=== PATIENT | male | born 1995 | race African-American/Black ===

== ENCOUNTER 2017-12-24 17:08 | Inpatient (IN) | payer BC ==
[~2017-12-24] VITALS: Ht 170.2 cm; Wt 59.9 kg
[~2017-12-24 17:08] MED LIST: AMIODARONE HCL 50 MG/ML 3 ML VIAL IV ONE; CALCIUM CHLORIDE 100 MG/ML 10 ML SYG IVP ONE; DEXTROSE 50%-WATER 50 ML DISP.SYRIN IV ONE; DOPAMINE HCL 400 MG/D5%-WATER 250 ML IV ONE; EPINEPHRINE 0.1 MG/ML 10 ML SYG IVP ONE; ETOMIDATE 2 MG/ML 10 ML VIAL IVP ONE; ROCURONIUM BROMIDE 10MG/1ML 5ML VL IV ONE; SODIUM BICARB 8.4% 50ML SYRINGE IVP ONE
[2017-12-24] MEDS ORDERED: SODIUM CHLORIDE 0.9% 1000ML 1,000 ML IV ONE ×2 (17:43→19:56)
[2017-12-24] MEDS ORDERED: ONDANSETRON HCL 4 MG/2 ML VIAL ONE ×2 (17:43→18:09)
[2017-12-24] MEDS ORDERED: LABETALOL HCL 5 MG/ML 20ML VIAL IV ONE (17:43)
[2017-12-24] MEDS ORDERED: METHYLPREDNISOLONE SOD SUCC 125MG/2ML VIAL ONE (17:44)
[2017-12-24] MEDS ORDERED: CEFTRIAXONE SODIUM 1 GM ONE (17:44)
[2017-12-24] MEDS ORDERED: KETOROLAC TROMETHAMINE 30MG/ML ONE (17:44)
[2017-12-24] MEDS ORDERED: ACETAMINOPHEN EXTRA STRENGTH 500 MG TABLET ONE (17:44)
[2017-12-24] MEDS ORDERED: SODIUM CHLORIDE 0.9% 1000ML 2,000 ML IV ONE (17:46)
[2017-12-24 17:48] LABS: BASOPHILS % (AUTO) 0.1 % (0.0-5.0); LYMPHOCYTES % (AUTO) 8.6 % (21.0-51.0); MEAN CORPUSCULAR HEMOGLOBIN 34.9 pg (27.0-33.0); MEAN CORPUSCULAR HGB CONC 33.4 g/dL (32.0-36.0); MEAN CORPUSCULAR VOLUME 104.3 fL (80-100); MONOCYTES % (AUTO) 1.8 % (3.0-13.0); NEUTROPHILS % (AUTO) 51.5 % (40.0-77.0); PLATELET COUNT (AUTO) 117 K/uL (130-400); RED BLOOD CELL COUNT(AUTO) 1.65 MIL/uL (4.50-6.20); RED CELL DISTRIBUTION WIDTH 28.3 % (11.0-15.5); WHITE BLOOD COUNT (AUTO) 29.6 K/uL (4.8-10.8)
[2017-12-24 17:49] LABS: HEMATOCRIT 17.2 % (42-54)
[2017-12-24] MEDS ORDERED: ALBUTEROL SULFATE 0.083% 2.5 MG/3 ML INH IH ONE (17:52)
[2017-12-24 17:55] LABS: INR 1.62 (0.85-1.15); PARTIAL THROMBOPLASTIN TIME 38.9 SEC (26.3-35.5); PROTHROMBIN TIME 16.8 SEC (9.6-11.6)
[2017-12-24] MEDS ORDERED: AZITHROMYCIN 500MG+NS 250ML 250 ML IV ONE (17:55)
[2017-12-24 18:07] LABS: CREATININE 6.3 mg/dL (0.5-1.5); POTASSIUM 5.3 mmol/L (3.5-5.1)
[2017-12-24] MEDS ORDERED: SODIUM BICARB 50MEQ 50ML VIAL ONE (18:19)
[2017-12-24] MEDS ORDERED: PROPOFOL 1000 MG/100 ML 100 ML IV ONE (18:25)
[2017-12-24 18:35] LABS: ALBUMIN 3.2 g/dL (3.5-5.0); BAND NEUTROPHILS % (MANUAL) 3 % (0-2); BILIRUBIN,TOTAL 15.2 mg/dL (0.2-1.0); CORRECTED WHITE BLOOD COUNT 12.1 K/uL (4.5-11.0); LYMPHOCYTES % (MANUAL) 14 % (22-44); METAMYELOCYTES % 6 % (0-0); MONOCYTES % (MANUAL) 3 % (2-9); MYELOCYTES % 2 % (0-0); NUCLEATED RED BLOOD CELLS 144.8 % (0.0-0.19); SEGMENTED NEUTROPHILS % 72 % (40-70); TOTAL PROTEIN, SERUM 6.9 g/dL (6.0-8.3)
[2017-12-24 18:36] LABS: PLATELET MORPHOLOGY COMMENT SLIGHTLY DECREASED
[2017-12-24] MEDS ORDERED: FUROSEMIDE 10 MG/ML 2ML VIAL ONE (18:39)
[2017-12-24] MEDS ORDERED: NOREPINEPHRINE BITARTRATE 1 MG/1 ML ML IV ONE ×2 (18:44→23:09)
[2017-12-24] MEDS ORDERED: ATROPINE SULFATE 0.1 MG/ML 10 ML SYG IVP ONE (18:44)
[2017-12-24 18:45] LABS: TROPONIN I 3.45 ng/mL (0.00-0.06)
[2017-12-24] MEDS ORDERED: DOPAMINE 800MG/D5 250ML 250 ML IV ONE (18:46)
[2017-12-24 18:53] LABS: RETICULOCYTE % (AUTO) 18.76 % (0.42-2.23)
[2017-12-24 19:10] LABS: % IRON SATURATION 44.5 % (30-44); FERRITIN 300 ng/mL (30-400); IRON, SERUM 82 mcg/dL (65-175); TOTAL IRON BINDING CAPACITY 184 mcg/dL (250-450)
[2017-12-24] MEDS ORDERED: MAGNESIUM 2GM PREMIX 50ML 50 ML IV ONE (19:13)
[2017-12-24] MEDS ORDERED: DEXTROSE 50%-WATER 50 ML DISP.SYRIN IV ONE ×2 (19:26→19:32)
[2017-12-24] MEDS ORDERED: EPINEPHRINE 1 MG/ML AMPULE ONE ×2 (19:29→23:16)
[2017-12-24] MEDS ORDERED: EPINEPHRINE 0.1 MG/ML 10 ML SYG ONE ×2 (19:29→19:32)
[2017-12-24] MEDS ORDERED: CEFAZOLIN SODIUM 1 GM VIAL ONE (19:55)
[2017-12-24] MEDS ORDERED: HEPARIN SODIUM 5000UNIT/ML 1ML VIAL ONE (19:57)
[2017-12-24] MEDS ORDERED: SODIUM CHLORIDE 0.9% 500ML 500 ML IV ONE (19:58)
[2017-12-24] MEDS: EPINEPHRINE 2 MG in SODIUM CHLORIDE 0.9% 250 ML IV SCH (20:00)
[2017-12-24 20:08] LABS: ABG BASE EXCESS -21.7 mmol/L (-2.0-3.0); ABG HCO3 7.5 mmol/L (21.0-28.0); ABG OXYGEN SATURATION 96.9 % (95.0-99.0); ABG PCO2 32 mmHg (35-48)
[2017-12-24] MEDS ORDERED: SODIUM BICARB [NEONATAL] 4.2% 10ML SYG ONE (20:14)
[2017-12-24] MEDS ORDERED: ZOSYN 3.375GM+NS 50ML 50 ML IV ONE (20:19)
[2017-12-24] MEDS ORDERED: SODIUM CHLORIDE 0.9% 100 ML IV ONE (20:20)
[2017-12-24 21:04] LABS: ABG BASE EXCESS -20.3 mmol/L (-2.0-3.0); ABG HCO3 3.8 mmol/L (21.0-28.0); ABG OXYGEN SATURATION 98.8 % (95.0-99.0); ABG PCO2 < 15 mmHg (35-48)
[2017-12-24 21:22] LABS: ABG BASE EXCESS -15.6 mmol/L (-2.0-3.0); ABG HCO3 10.1 mmol/L (21.0-28.0); ABG OXYGEN SATURATION 92.9 % (95.0-99.0); ABG PCO2 23 mmHg (35-48)
[2017-12-24 22:13] LABS: ABG BASE EXCESS 4.7 mmol/L (-2.0-3.0); ABG HCO3 31.8 mmol/L (21.0-28.0); ABG OXYGEN SATURATION 81.5 % (95.0-99.0); ABG PCO2 72 mmHg (35-48)
[2017-12-24 22:19] LABS: ABG BASE EXCESS 2.4 mmol/L (-2.0-3.0); ABG HCO3 30.9 mmol/L (21.0-28.0); ABG OXYGEN SATURATION 74.6 % (95.0-99.0); ABG PCO2 85 mmHg (35-48)
[2017-12-24] MEDS ORDERED: FUROSEMIDE 10 MG/ML 4ML VIAL ONE (22:21)
[2017-12-24 22:32] LABS: ABG OXYGEN SATURATION 87.9 % (95.0-99.0); ABG PCO2 41 mmHg (35-48)
[2017-12-24 23:00] VITALS: BP_SYST 0; BP_SYST 30; BP_DIAS 0; BP_DIAS 28
[2017-12-24 23:10] LABS: ABG BASE EXCESS -23.7 mmol/L (-2.0-3.0); ABG HCO3 3.2 mmol/L (21.0-28.0); ABG PCO2 < 15 mmHg (35-48)
[2017-12-24] MEDS ORDERED: SODIUM CHLORIDE 0.9% 500 ML IV ONE (23:11)
[2017-12-24 23:15] VITALS: BP_SYST 0; BP_SYST 29; BP_DIAS 0; BP_DIAS 27
[2017-12-24 23:30] VITALS: BP_SYST 0; BP_SYST 29; BP_DIAS 0; BP_DIAS 27
[2017-12-24 23:45] VITALS: BP_SYST 0; BP_SYST 33; BP_DIAS 0; BP_DIAS 29
[2017-12-24] MEDS ORDERED: DOPAMINE 800MG/D5 250ML 250 ML IV PRN (23:45)
[2017-12-24] MEDS ORDERED: NOREPINEPHRINE 4MG/NS 250ML 250 ML IV SCH (23:45)
[2017-12-24] MEDS ORDERED: EPINEPHRINE 2 MG in SODIUM CHLORIDE 0.9% 250 ML IV SCH (23:45)
[2017-12-24] MEDS ORDERED: SODIUM BICARB 8.4% 50ML SYRINGE IVP SCH (23:45)
[2017-12-24] MEDS: VASOPRESSIN 20 UNITS in SODIUM CHLORIDE 0.9% 50 ML IV PRN (23:45)
[2017-12-24] MEDS ORDERED: INSULIN REGULAR, HUMAN 3ML 100 UNIT in SODIUM CHLORIDE 0.9% 99 ML IV PRN ×2 (23:45)
[2017-12-24] MEDS ORDERED: VASOPRESSIN 20 UNITS/ML 1ML VIAL ONE (23:54)
[2017-12-24 23:55] LABS: ABG OXYGEN SATURATION 98.7 % (95.0-99.0)
[2017-12-25] VITALS (29 sets, daily range): BP systolic 0–75; BP diastolic 0–218
[2017-12-25 00:01] LABS: ABG OXYGEN SATURATION 98.8 % (95.0-99.0)
[2017-12-25] MEDS ORDERED: SODIUM CHLORIDE 0.9% 100 ML IV ONE (00:13)
[2017-12-25] MEDS ORDERED: INSULIN HUMULIN R 100 UNIT/ML 3ML ONE (00:13)
[2017-12-25 00:17] LABS: ABG OXYGEN SATURATION 98.8 % (95.0-99.0)
[2017-12-25 00:28] LABS: ABG BASE EXCESS -6.6 mmol/L (-2.0-3.0); ABG HCO3 13.2 mmol/L (21.0-28.0); ABG OXYGEN SATURATION 98.9 % (95.0-99.0); ABG PCO2 < 15 mmHg (35-48)
[2017-12-25] MEDS ORDERED: LEVOFLOXACIN 750 MG/D5W 150 ML 150 ML IV SCH ×2 (01:00→01:30)
[2017-12-25] MEDS ORDERED: CALCIUM CHLORIDE 100 MG/ML 10 ML SYG IVP SCH (01:00)
[2017-12-25] MEDS ORDERED: EPINEPHRINE 1 MG/ML AMPULE ONE ×3 (01:09→06:04)
[2017-12-25] MEDS ORDERED: SODIUM CHLORIDE 0.9% 250 ML IV ONE ×3 (01:11→06:05)
[2017-12-25] MEDS ORDERED: NOREPINEPHRINE BITARTRATE 1 MG/1 ML ML IV ONE (01:19)
[2017-12-25 01:24] LABS: ABG BASE EXCESS -15.6 mmol/L (-2.0-3.0); ABG HCO3 7.6 mmol/L (21.0-28.0); ABG OXYGEN SATURATION 98.7 % (95.0-99.0); ABG PCO2 < 15 mmHg (35-48)
[2017-12-25 01:25] LABS: CORRECTED WHITE BLOOD COUNT 4.4 K/uL (4.5-11.0); HEMATOCRIT 25.5 % (42-54); MEAN CORPUSCULAR HEMOGLOBIN 29.7 pg (27.0-33.0); MEAN CORPUSCULAR HGB CONC 32.7 g/dL (32.0-36.0); MEAN CORPUSCULAR VOLUME 90.9 fL (80-100); NUCLEATED RED BLOOD CELLS 89.2 % (0.0-0.19); PLATELET COUNT (AUTO) 90 K/uL (130-400); RED BLOOD CELL COUNT(AUTO) 2.81 MIL/uL (4.50-6.20); RED CELL DISTRIBUTION WIDTH 16.8 % (11.0-15.5); WHITE BLOOD COUNT (AUTO) 8.4 K/uL (4.8-10.8)
[2017-12-25 01:46] LABS: INR 2.86 (0.85-1.15); PROTHROMBIN TIME 29.4 SEC (9.6-11.6)
[2017-12-25 01:48] LABS: ALBUMIN 1.6 g/dL (3.5-5.0); BILIRUBIN,TOTAL 5.7 mg/dL (0.2-1.0); CREATININE 4.6 mg/dL (0.5-1.5); TOTAL PROTEIN, SERUM 3.6 g/dL (6.0-8.3)
[2017-12-25 01:56] LABS: POTASSIUM 8.5 mmol/L (3.5-5.1)
[2017-12-25 01:57] LABS: BAND NEUTROPHILS % (MANUAL) 12 % (0-2); EOSINOPHILS % (MANUAL) 1 % (1-6); LYMPHOCYTES % (MANUAL) 17 % (22-44); METAMYELOCYTES % 3 % (0-0); MONOCYTES % (MANUAL) 6 % (2-9); SEGMENTED NEUTROPHILS % 61 % (40-70)
[2017-12-25 01:58] LABS: MAN.DIFF COMMENT-IMPRESSION MANUAL DIFFERENTIAL
[2017-12-25 02:00] LABS: PLATELET MORPHOLOGY COMMENT DECREASED
[2017-12-25] MEDS: CALCIUM CHLORIDE 100 MG/ML 10 ML SYG IVP SCH ×9 (02:00→12:22)
[2017-12-25 02:28] LABS: PARTIAL THROMBOPLASTIN TIME > 120.0 SEC (26.3-35.5)
[2017-12-25] MEDS ORDERED: LEVOFLOXACIN 750 MG/D5W 150 ML 150 ML ONE (02:42)
[2017-12-25] MEDS ORDERED: SODIUM BICARB 50MEQ 50ML VIAL ONE ×4 (02:53→08:18)
[2017-12-25] MEDS ORDERED: SODIUM BICARB 50MEQ 50ML VIAL IV ONE (03:00)
[2017-12-25 03:03] LABS: ABG BASE EXCESS 32.8 mmol/L (-2.0-3.0); ABG HCO3 55.1 mmol/L (21.0-28.0); ABG OXYGEN SATURATION 98.6 % (95.0-99.0); ABG PCO2 42 mmHg (35-48)
[2017-12-25 03:16] LABS: ABG BASE EXCESS 13.8 mmol/L (-2.0-3.0); ABG HCO3 35.9 mmol/L (21.0-28.0); ABG OXYGEN SATURATION 98.7 % (95.0-99.0); ABG PCO2 34 mmHg (35-48)
[2017-12-25 03:30] LABS: HEMATOCRIT 16.3 % (42-54)
[2017-12-25 03:32] LABS: ALBUMIN 1.3 g/dL (3.5-5.0); CHOLESTEROL < 50 mg/dL (<200); CREATININE 0.5 mg/dL (0.5-1.5); GLOMERULAR FILTR. RATE CALC 273 mL/min (>60); HDL CHOLESTEROL 17 mg/dL (29-71); LDL DIRECT 34 mg/dL (0-99); TRIGLYCERIDES 55 mg/dL (30-200); UREA NITROGEN, BLOOD 5 mg/dL (7-18)
[2017-12-25] MEDS ORDERED: SODIUM CHLORIDE 0.9% 500ML 500 ML IV ONE ×2 (03:58→09:07)
[2017-12-25 04:01] LABS: HEMOGLOBIN A1C 4.9 % (4.0-6.0)
[2017-12-25 04:16] LABS: % IRON SATURATION 70.5 % (30-44)
[2017-12-25] MEDS ORDERED: VASOPRESSIN 20 UNITS/ML 1ML VIAL ONE (04:24)
[2017-12-25 04:26] LABS: ALBUMIN 1.2 g/dL (3.5-5.0); BILIRUBIN,TOTAL 3.5 mg/dL (0.2-1.0); CREATININE 0.5 mg/dL (0.5-1.5); TOTAL PROTEIN, SERUM 2.7 g/dL (6.0-8.3)
[2017-12-25] MEDS: VASOPRESSIN 20 UNITS in SODIUM CHLORIDE 0.9% 50 ML IV PRN (04:26)
[2017-12-25 04:40] LABS: POTASSIUM 2.8 mmol/L (3.5-5.1)
[2017-12-25 05:00] LABS: ABG OXYGEN SATURATION 98.7 % (95.0-99.0)
[2017-12-25 05:04] LABS: ABG OXYGEN SATURATION 98.8 % (95.0-99.0)
[2017-12-25 05:18] LABS: ABG BASE EXCESS -1.6 mmol/L (-2.0-3.0); ABG OXYGEN SATURATION 98.7 % (95.0-99.0); ABG PCO2 < 15 mmHg (35-48)
[2017-12-25] MEDS: SODIUM BICARB 8.4% 50ML SYRINGE IVP SCH ×2 (05:30→08:20)
[2017-12-25] MEDS: EPINEPHRINE 2 MG in SODIUM CHLORIDE 0.9% 250 ML IV SCH (06:08)
[2017-12-25 06:11] LABS: ABG OXYGEN SATURATION 98.4 % (95.0-99.0)
[2017-12-25 06:19] LABS: ABG OXYGEN SATURATION 98.5 % (95.0-99.0)
[2017-12-25] MEDS ORDERED: 0.9% SODIUM CHLORIDE 250 ML IV BAG IV PRN (06:30)
[2017-12-25] MEDS ORDERED: SODIUM CHLORIDE 0.9% 1000ML 1,000 ML IV PRN (06:30)
[2017-12-25] MEDS ORDERED: ALBUMIN (HUMAN) 25% 100 ML IV PRN (06:30)
[2017-12-25 06:35] LABS: ABG BASE EXCESS -1.7 mmol/L (-2.0-3.0); ABG HCO3 16.6 mmol/L (21.0-28.0); ABG OXYGEN SATURATION 98.7 % (95.0-99.0); ABG PCO2 < 15 mmHg (35-48)
[2017-12-25 06:38] LABS: APPEARANCE,URINE CLOUDY (CLEAR); BILIRUBIN,URINE MODERATE (NEGATIVE); COLOR,URINE YELLOW (YELLOW); GLUCOSE, URINE (UA) NEGATIVE (NEGATIVE); KETONES,URINE NEGATIVE (NEGATIVE); LEUKOCYTE ESTERASE ,URINE NEGATIVE (NEGATIVE); NITRATE,URINE NEGATIVE (NEGATIVE); OCCULT BLOOD,URINE LARGE (NEGATIVE); PROTEIN,URINE >=300 (NEGATIVE)
[2017-12-25 06:46] LABS: AMPHET/METH SCREEN,URINE NEGATIVE (NEGATIVE); BARBITURATE SCREEN, URINE NEGATIVE (NEGATIVE); BENZODIAZEPINES SCREEN,URINE NEGATIVE (NEGATIVE); CANNABINOID SCREEN,URINE NEGATIVE (NEGATIVE); COCAINE SCREEN,URINE NEGATIVE (NEGATIVE); OPIATE SCREEN,URINE NEGATIVE (NEGATIVE); PHENCYCLIDINE SCREEN,URINE NEGATIVE (NEGATIVE)
[2017-12-25 06:51] LABS: AMORPHOUS SEDIMENT,UR Moderate /LPF (None Seen); BACTERIA,URINE Few /HPF (None Seen); SQUAMOUS EPITHELIAL CELL,UR Few /HPF (0-2)
[2017-12-25] MEDS ORDERED: SODIUM POLYSTYRENE SULFONATE 15 GM/60 ML ML ONE (07:27)
[2017-12-25] MEDS ORDERED: SODIUM POLYSTYRENE SULFONATE 15 GM/60 ML ML PO SCH (07:30)
[2017-12-25 08:09] LABS: ABG BASE EXCESS -15.8 mmol/L (-2.0-3.0); ABG HCO3 7.2 mmol/L (21.0-28.0); ABG OXYGEN SATURATION 98.7 % (95.0-99.0); ABG PCO2 < 15 mmHg (35-48)
[2017-12-25] MEDS ORDERED: ALBUMIN (HUMAN) 5% 250 ML IV ONE (08:52)
[2017-12-25] MEDS ORDERED: OSELTAMIVIR PHOSPHATE 75 MG CAP PO SCH (09:00)
[2017-12-25] MEDS ORDERED: FAMOTIDINE/PF 20 MG/2 ML VIAL IV SCH (09:00)
[2017-12-25 09:11] LABS: ABG OXYGEN SATURATION 98.1 % (95.0-99.0)
[2017-12-25 09:33] LABS: ABG BASE EXCESS 7.1 mmol/L (-2.0-3.0); ABG HCO3 26.1 mmol/L (21.0-28.0); ABG OXYGEN SATURATION 98.4 % (95.0-99.0); ABG PCO2 20 mmHg (35-48)
[2017-12-25 10:55] LABS: ABG BASE EXCESS 7.9 mmol/L (-2.0-3.0); ABG HCO3 31.5 mmol/L (21.0-28.0); ABG PCO2 40 mmHg (35-48)
[2017-12-25 12:19] LABS: CARBON DIOXIDE 21 mmol/L (21-32); CHLORIDE 112 mmol/L (101-111); CREATININE 2.6 mg/dL (0.5-1.5); GLOMERULAR FILTR. RATE CALC 41 mL/min (>60); GLUCOSE,RANDOM 86 mg/dL (70-105); UREA NITROGEN, BLOOD 29 mg/dL (7-18)
[2017-12-25 12:19] LABS: ABG BASE EXCESS 1.4 mmol/L (-2.0-3.0); ABG HCO3 24.2 mmol/L (21.0-28.0); ABG OXYGEN SATURATION 98.9 % (95.0-99.0); ABG PCO2 32 mmHg (35-48)
[2017-12-25 12:29] LABS: SODIUM SERUM 161 mmol/L (136-145)
[2017-12-25 12:30] LABS: POTASSIUM > 9.6 mmol/L (3.5-5.1)
[2017-12-25 12:34] LABS: FIBRINOGEN > 860 mg/dL (180-350)
[2017-12-25 12:40] LABS: INR > 7.00 (0.85-1.15); PROTHROMBIN TIME > 63.0 SEC (9.6-11.6)
[2017-12-25 12:41] LABS: PARTIAL THROMBOPLASTIN TIME > 120.0 SEC (26.3-35.5)
[2017-12-25 13:15] LABS: ABG BASE EXCESS -3.6 mmol/L (-2.0-3.0); ABG HCO3 17.8 mmol/L (21.0-28.0); ABG OXYGEN SATURATION 98.8 % (95.0-99.0); ABG PCO2 22 mmHg (35-48)
[2017-12-27 05:16] LABS: HEPATITIS Bs ANTIGEN SCREEN P Negative (Negative)
== END 2017-12-25 13:30 | disposition short-term general hospital (02) | DRG 207 ==
LOC: EDH 17:08 → EDHIP 20:02 → 2CV 20:36
PROVIDERS: ADMIT Internal Medicine; ATTEND Internal Medicine
PROC: 30233N1 Transfusion of Nonautologous Red Blood Cells into Peripheral Vein, Percutaneous Approach (ICD-10-PCS; 2017-12-24)
PROC: 30233R1 Transfusion of Nonautologous Platelets into Peripheral Vein, Percutaneous Approach (ICD-10-PCS; 2017-12-24)
PROC: 30233K1 Transfusion of Nonautologous Frozen Plasma into Peripheral Vein, Percutaneous Approach (ICD-10-PCS; 2017-12-24)
PROC: 5A1D70Z Performance of Urinary Filtration, Intermittent, Less than 6 Hours Per Day (ICD-10-PCS; 2017-12-24)
PROC: 5A1D70Z Performance of Urinary Filtration, Intermittent, Less than 6 Hours Per Day (ICD-10-PCS; 2017-12-24)
PROC: 5A1935Z Respiratory Ventilation, Less than 24 Consecutive Hours (ICD-10-PCS; 2017-12-24)
PROC: 0BH17EZ Insertion of Endotracheal Airway into Trachea, Via Natural or Artificial Opening (ICD-10-PCS; 2017-12-24)
PROC: 5A12012 Performance of Cardiac Output, Single, Manual (ICD-10-PCS; 2017-12-24)
PROC: 5A1522G Extracorporeal Oxygenation, Membrane, Peripheral Veno-arterial (ICD-10-PCS; principal; 2017-12-24 20:00)
PROC: 0W9D30Z Drainage of Pericardial Cavity with Drainage Device, Percutaneous Approach (ICD-10-PCS; 2017-12-24 20:00)
PROC: 30233L1 Transfusion of Nonautologous Fresh Plasma into Peripheral Vein, Percutaneous Approach (ICD-10-PCS; 2017-12-24 20:00)
DX: J96.01 Acute respiratory failure with hypoxia (principal); D57.01 Hb-SS disease with acute chest syndrome; I46.9 Cardiac arrest, cause unspecified; E87.2 Acidosis; N17.9 Acute kidney failure, unspecified; I31.4 Cardiac tamponade; G93.1 Anoxic brain damage, not elsewhere classified; D68.9 Coagulation defect, unspecified; I42.0 Dilated cardiomyopathy; I47.2 Ventricular tachycardia; R18.8 Other ascites; E87.5 Hyperkalemia; H57.04 Mydriasis; T68.XXXA Hypothermia, initial encounter; D72.829 Elevated white blood cell count, unspecified; D69.6 Thrombocytopenia, unspecified; I10 Essential (primary) hypertension; Z95.0 Presence of cardiac pacemaker; Z83.2 Family history of diseases of the blood and blood-forming organs and certain disorders involving the immune mechanism
CPT/HCPCS: 31500; 36415; 36430; 71045; 76998; 80048; 80053; 80061; 80305; 81001; 82040; 82435; 82550; 82565; 82607; 82728; 82803; 82947; 82948; 83010; 83036; 83540; 83550; 83605; 83735; 83874; 83880; 84132; 84295; 84484; 84520; 85014; 85018; 85025; 85384; 85610; 85730; 86701; 86704; 86706; 86850; 86900; 86901; 86922; 86927; 87040; 87071; 87088; 87205; 87252; 87340; 87390; 87520; 87633; 87804; 90935; 92950; 93005; 93306; 93308; 94002; 94003; 94640; 99291; 99292; A7048; J0171; J0282; J0456; J0461; J0690; J0696; J1265; J1644; J1815; J1885; J1940; J1956; J2405; J2543; J2704; J2930; J3475; J3490; J7030; J7040; J7070; P9012; P9016; P9017; P9034; P9045